=== PATIENT | female | born 1995 | race Caucasian/White ===

== ENCOUNTER 2023-01-06 10:08 | Emergency (ER) | payer OTHER ==
[2023-01-06 10:13] VITALS: BP 111/73; PULSE 76; RESP 18; TEMP 98.3; BMI 28.8
[2023-01-06] MEDS ORDERED: FLUORESCEIN NA 1 EA STRIP OS ONE (10:48)
[2023-01-06] MEDS ORDERED: TETRACAINE 0.5% HCL 0.6ML DROPPER.BOTTLE OS ONE (10:48)
[2023-01-06] MEDS ORDERED: TETRACAINE 0.5% OPHTH SOLN 2 ML BOTTLE ONE (10:49)
[2023-01-06] MEDS ORDERED: FLUORESCEIN NA 1 EA STRIP ONE (10:49)
== END 2023-01-06 11:28 | disposition home or self-care (01) ==
LOC: JERFT 10:08
DX: H02.844 Edema of left upper eyelid (principal); H53.142 Visual discomfort, left eye; S05.02XA Injury of conjunctiva and corneal abrasion without foreign body, left eye, initial encounter; W50.0XXA Accidental hit or strike by another person, initial encounter
CPT/HCPCS: 99283-25